=== PATIENT | male | born 1950 | race Caucasian/White ===

== ENCOUNTER 2017-02-18 08:00 | Outpatient (RCR) | payer MEDICARE, OTHER, SELFPAY | END 2017-03-07 | LOC: PT.CARL 08:00 | PROVIDERS: Referring Provider Orthopaedic Surgery; Visit Provider Orthopaedic Surgery | DX: Z47.31 Aftercare following explantation of shoulder joint prosthesis (principal) | CPT/HCPCS: G8984; G8985; G8986; 97010; 97014; 97033; 97110; 97140; 97161; G0283 ==

== ENCOUNTER 2018-06-25 10:00 | Outpatient (RCR) | payer MEDICARE, OTHER, SELFPAY | END 2018-06-25 10:05 | disposition home or self-care (01) | LOC: PT 10:00 | PROVIDERS: Visit Provider Orthopaedic Surgery | DX: Z96.651 Presence of right artificial knee joint (principal) | CPT/HCPCS: 97012; 97014; 97016; 97110; 97140; 97163; G0283 ==

== ENCOUNTER 2019-06-21 09:00 | Outpatient (RCR) | payer MEDICARE, OTHER, SELFPAY | END 2019-07-05 15:52 | disposition home or self-care (01) | LOC: PT.CARL 09:00 | PROVIDERS: Visit Provider Orthopaedic Surgery | DX: M25.561 Pain in right knee (principal); Z96.651 Presence of right artificial knee joint | CPT/HCPCS: 97014; 97033; 97110; 97116; 97140; 97163; G0283 ==

== ENCOUNTER 2022-04-08 14:00 | Outpatient (RCR) | payer MEDICARE, OTHER, SELFPAY | END 2022-04-11 06:52 | disposition home or self-care (01) | LOC: PT 14:00 | PROVIDERS: Visit Provider Orthopaedic Surgery | DX: S46.012S Strain of muscle(s) and tendon(s) of the rotator cuff of left shoulder, sequela (principal); M19.012 Primary osteoarthritis, left shoulder; Z96.612 Presence of left artificial shoulder joint | CPT/HCPCS: 97010; 97014; 97110; 97140; 97163; G0283 ==

== ENCOUNTER → 2022-08-15 23:00 | Outpatient (CLI) | payer MEDICARE, OTHER, SELFPAY ==
[2022-08-15 16:03] LABS: Basophils % 0.5 % (0.1-2.0); Eosinophils # 0.6 K/mm3 (0.0-0.4); Eosinophils % 6.7 % (0.1-12.0); Hematocrit 46.7 % (42.0-52.0); Hemoglobin 15.2 g/dL (14.1-18.0); Lymphocytes # 2.4 K/mm3 (0.7-4.5); Lymphocytes % 27.9 % (10-50); Mean Corpuscular HGB Conc 32.6 g/dL (31.8-35.4); Mean Corpuscular Hemoglobin 29.6 pg (27.0-31.2); Mean Platelet Volume 8.8 fl (7.4-10.4); Monocytes # 0.6 K/mm3 (0.1-1.0); Monocytes % 7.2 % (1.7-9.3); Neutrophils # 4.9 K/mm3 (1.8-7.8); Neutrophils % 57.6 % (37.0-80.0); Platelet Count 249 K/mm3 (142-424); Red Blood Count 5.13 M/mm3 (4.60-6.20); Red Cell Distribution Width 12.8 % (11.5-17.5); White Blood Count 8.5 K/mm3 (4.8-10.8)
[2022-08-15 16:04] LABS: Chloride 104 mmol/L (98-107); Potassium 4.3 mmoL/L (3.5-5.1); Sodium 142 mmol/L (136-145)
[2022-08-15 16:06] LABS: Blood Urea Nitrogen 19 mg/dl (9-20); Estimated Glomerular Filt Rate 83 ml/min (>60); GFR (African American) 100 ML/MIN (>60)
[2022-08-15 16:07] LABS: Alanine Aminotransferase 39 U/L (12-78); Albumin/Globulin Ratio 1.3 (1.1-1.8); Alkaline Phosphatase 105 U/L (38-126); Anion Gap 13.3 mEq/L (5-15); Aspartate Amino Transferase 40 U/L (17-59); Bilirubin,Total 2.2 mg/dl (0.2-1.3); Calcium 9.2 mg/dl (8.4-10.2); Carbon Dioxide 29 mmol/L (22.0-30.0); Cholesterol 144 mg/dl (140-200); Globulin 3.1 g/dL (1.3-3.2); Glucose 137 mg/dl (74-100); Total Protein,Serum 7.1 g/dl (6.3-8.2); Triglycerides 146 mg/dl (30-150); VLDL Cholesterol 29 mg/dL (0-40)
[2022-08-15 16:08] LABS: Chol/HDL Ratio 4.4 (1-3.5); HDL Cholesterol 33 mg/dl (40-60)
[2022-08-15 16:19] LABS: Direct LDL Cholesterol 78.57 mg/dL (100-129)
[2022-08-16 10:09] LABS: Hemoglobin A1C 5.4 % (4.0-6.0)
== END ==
PROVIDERS: PCP Nurse Practitioner Family; Visit Provider Nurse Practitioner Family
DX: I50.30 Unspecified diastolic (congestive) heart failure (principal); I44.0 Atrioventricular block, first degree; R73.9 Hyperglycemia, unspecified; I11.0 Hypertensive heart disease with heart failure
CPT/HCPCS: 80053; 80061; 83036; 85025

== ENCOUNTER 2022-10-05 10:28 | Emergency (ER) | payer MEDICARE, OTHER, SELFPAY ==
[2022-10-05 10:29] VITALS: BP 164/71; PULSE 53; RESP 18; TEMP 36.4; O2SAT 99; BMI 34.7
[2022-10-05 11:01] VITALS: BP 136/57; PULSE 56; RESP 18; O2SAT 98
--- NOTE | 2022-10-05 11:06 | HMH.EDGENADL ---
Discharge Plan Disposition Patient Disposition: Home, Self-Care Prescriptions Prescriptions: New hydrocodone-acetaminophen 5-325 mg tablet 1 tab PO Q6H PRN (Reason: pain) 3 Days Qty: 12 0RF tamsulosin [Flomax] 0.4 mg capsule 0.4 mg PO DAILY 7 Days Qty: 7 0RF ondansetron 4 mg tablet,disintegrating 4 mg PO Q6H PRN (Reason: nausea and vomiting) 5 Days Qty: 20 0RF No Action atorvastatin 80 mg tablet 80 mg PO DAILY Patient Comments: TAKE 1 TABLET BY MOUTH EVERY EVENING pantoprazole 40 mg tablet,delayed release (DR/EC) 40 mg PO DAILY losartan 50 mg tablet 50 mg PO DAILY Patient Comments: TAKE 1 TABLET BY MOUTH EVERY DAY furosemide 20 mg tablet 20 mg PO DAILY Patient Comments: TAKE 1 TABLET BY MOUTH DAILY clopidogrel 75 mg tablet 75 mg PO DAILY nitroglycerin 0.4 mg tablet, sublingual 0.4 mg sublingual Q5-15M PRN Rx Instructions: do not exceed 3 doses per episode gabapentin 600 mg tablet 600 mg PO TID Qty: 90 2RF carvedilol [Coreg] 12.5 mg tablet 12.5 mg PO BID 90 Days Qty: 180 1RF Referrals Follow up/Referrals: Travis Castellano MD [Primary Care Provider] - See instructions Activity Restrictions/Add. Instructions Additional Instructions/Restrictions: Follow-up with urologist if you are not improving and return to the emergency department with any high fevers or intractable pain or nausea vomiting as well. Clinical Impressions Clinical Impression: Kidney stone on left side, Hydronephrosis concurrent with and due to calculi of kidney and ureter Instructions Patient Instructions: DI for Acute Abdominal Pain Discharge ED Provider: Tomas Parker General Adult HPI General Chief complaint: Abdominal Pain Stated complaint: stomach pain,diarrhea,nausea Time Seen by Provider: 10/05/22 10:37 History of Present Illness HPI narrative: Patient is a 72-year-old male with a history of appendectomy and cholecystectomy and kidney stones requiring stents presenting today with abdominal pain and feeling like my abdomen is going to explode. He states that this began early this morning relatively suddenly he is having hard time articulating where it is and points to both sides of his lower abdomen and does have some pain radiating through to his back. Denies having any urinary symptoms has gone to the bathroom a few times with some very loose but small volume stools. No fevers or chills no hematuria that he is aware of. No frequency urgency or dysuria. States this feels different than kidney stones has had in the past. No significant tenderness when he touches his abdomen. Related Data Home Medications Medication Instructions Recorded Confirmed atorvastatin 80 mg tablet 80 mg PO DAILY HLD 08/15/22 08/15/22 clopidogrel 75 mg tablet 75 mg PO DAILY anticoagulation 08/15/22 08/15/22 furosemide 20 mg tablet 20 mg PO DAILY edema 08/15/22 08/15/22 losartan 50 mg tablet 50 mg PO DAILY HTN 08/15/22 08/15/22 nitroglycerin 0.4 mg sublingual 0.4 mg sublingual Q5-15M PRN 08/15/22 08/15/22 tablet pantoprazole 40 mg tablet,delayed 40 mg PO DAILY acid reflux 08/15/22 08/15/22 release Previous Rx's Medication Instructions Recorded gabapentin 600 mg tablet 600 mg PO TID neuropathy #90 tabs 08/15/22 carvedilol 12.5 mg tablet (Coreg) 12.5 mg PO BID 90 days #180 tabs 09/09/22 hydrocodone 5 mg-acetaminophen 325 1 tab PO Q6H PRN pain 3 days #12 10/05/22 mg tablet tabs ondansetron 4 mg disintegrating 4 mg PO Q6H PRN nausea and 10/05/22 tablet vomiting 5 days #20 tabs tamsulosin 0.4 mg capsule (Flomax) 0.4 mg PO DAILY 7 days #7 caps 10/05/22 Allergies Allergy/AdvReac Type Severity Reaction Status Date / Time No Known Allergies Allergy Verified 08/15/22 09:47 [facility] Disclaimer: The information contained in this section may have been updated after the patient was seen, as this information can be updated by other users. [facility]
--- NOTE | 2022-10-05 11:08 | CT_ITS ---
PROCEDURE INFORMATION: Exam: CT Abdomen And Pelvis With Contrast Exam date and time: 10/05/2022 12:44 PM Age: 72 years old Clinical indication: Abdominal pain; Other: Diffuse; Additional info: Diffuse abd pain out of proportion to exam TECHNIQUE: Imaging protocol: Computed tomography of the abdomen and pelvis with contrast. Radiation optimization: All CT scans at this facility use at least one of these dose optimization techniques: automated exposure control; mA and/or kV adjustment per patient size (includes targeted exams where dose is matched to clinical indication); or iterative reconstruction. Contrast material: ISOVUE; Contrast volume: 100 ml; Contrast route: INTRAVENOUS (IV); REPORTING DATA: Count of CT and Cardiac NM exams in prior 12 months: This patient has received 0 known CTs and 0 known cardiac nuclear medicine studies in the 12 months prior to the current study. COMPARISON: No relevant prior studies available. FINDINGS: Lungs: Minor hypoventilatory changes at the lung bases otherwise lung bases are clear. Liver: Liver is unremarkable. No mass or enlargement detected. Gallbladder and bile ducts: Gallbladder has been removed. Bile ducts are not appreciably dilated. Pancreas: Unremarkable. Main pancreatic duct is not significantly dilated. Spleen: Spleen is unremarkable. No enlargement or mass detected. Adrenal glands: Adrenal glands are not enlarged. No masses detected. Kidneys and ureters: There are multiple nonobstructing renal stones bilaterally measuring up to 8 mm. There is mild left hydroureteronephrosis secondary to 4 mm calculus projecting along the distal aspect of the left ureterovesical junction. It is unclear if this is recently passed into the bladder. There is mild perinephric and periureteral fluid likely related to the acute obstruction. 3 cm benign-appearing right renal cortical cyst. Stomach and bowel: Unremarkable. No obstruction. No mucosal thickening. Appendix: No evidence of acute appendicitis. Intraperitoneal space: Unremarkable. No free air. No significant fluid collection. Vasculature: Scattered atherosclerotic changes of the abdominal aorta and iliac vessels. No aortic aneurysm. Lymph nodes: Unremarkable. No enlarged lymph nodes. Urinary bladder: Urinary bladder is otherwise unremarkable. Reproductive: Prostate gland is mildly enlarged. Bones/joints: Postop changes from prior lumbar fusion L4-L5 with maintained alignment. No acute bony abnormalities. Soft tissues: Soft tissues are unremarkable. IMPRESSION: 1. Mild left hydroureteronephrosis secondary to a 4 mm calculus at the left ureterovesical junction, possibly recently passed with evidence of recent obstruction of the left tract 2. Multiple nonobstructing renal stones bilaterally. 3. Additional chronic findings as above. COMMENTS: Consistent with the [employer]'s Incidental Findings Committee white paper (J Am Conrad Radiol 2018): Any incidental renal lesion less than 1 cm or classified as too small to characterize, or any incidental cystic renal lesion characterized as simple-appearing, is likely benign. No follow-up imaging is recommended for these lesions per consensus recommendations based on imaging criteria.
[2022-10-05 11:15] LABS: Basophils % 0.4 % (0.1-2.0); Eosinophils # 0.3 K/mm3 (0.0-0.4); Eosinophils % 3.2 % (0.1-12.0); Hematocrit 45.9 % (42.0-52.0); Lymphocytes # 1.5 K/mm3 (0.7-4.5); Lymphocytes % 16.1 % (10-50); Mean Corpuscular HGB Conc 32.7 g/dL (31.8-35.4); Mean Corpuscular Hemoglobin 29.7 pg (27.0-31.2); Mean Platelet Volume 9.3 fl (7.4-10.4); Monocytes # 0.7 K/mm3 (0.1-1.0); Neutrophils # 6.6 K/mm3 (1.8-7.8); Neutrophils % 72.4 % (37.0-80.0); Platelet Count 250 K/mm3 (142-424); Red Blood Count 5.04 M/mm3 (4.60-6.20); Red Cell Distribution Width 12.7 % (11.5-17.5); White Blood Count 9.1 K/mm3 (4.8-10.8)
[2022-10-05 11:19] LABS: Chloride 106 mmol/L (98-107); Potassium 4.4 mmoL/L (3.5-5.1); Sodium 141 mmol/L (136-145)
--- NOTE | 2022-10-05 11:20 | PC.NURSE ---
Rounded on patient; provided patient warm blanket and pillow. Call boyer within reach nothing needed at this time
[2022-10-05 11:21] LABS: Alanine Aminotransferase 34 U/L (12-78); Aspartate Amino Transferase 33 U/L (17-59); Blood Urea Nitrogen 17 mg/dl (9-20); Estimated Glomerular Filt Rate 73 ml/min (>60); GFR (African American) 89 ML/MIN (>60)
[2022-10-05 11:22] LABS: Albumin Level 4.1 g/dl (3.5-5.0); Albumin/Globulin Ratio 1.3 (1.1-1.8); Alkaline Phosphatase 107 U/L (38-126); Anion Gap 9.4 mEq/L (5-15); Bilirubin,Total 1.2 mg/dl (0.2-1.3); Calcium 9.4 mg/dl (8.4-10.2); Carbon Dioxide 30 mmol/L (22.0-30.0); Globulin 3.1 g/dL (1.3-3.2); Glucose 143 mg/dl (74-100); Lipase 98 U/L (23-300); Total Protein,Serum 7.2 g/dl (6.3-8.2)
[2022-10-05 11:31] VITALS: BP 136/62; PULSE 54; RESP 18; O2SAT 92
[2022-10-05 11:33] LABS: Lactic Acid 1.4 mmol/L (0.7-2.1)
--- NOTE | 2022-10-05 11:53 | PC.NURSE ---
Reassessed patient's pain; patient resting in bed states medication did help. Call light within reach
[2022-10-05 12:00] VITALS: BP 127/57; PULSE 56; RESP 18; O2SAT 94
--- NOTE | 2022-10-05 12:02 | PC.NURSE ---
patient resting quietly, visitor at bedside, call light within reach
--- NOTE | 2022-10-05 12:18 | PC.NURSE ---
ROUNDED ON PT, REPORTS FEELING MUCH BETTER
[2022-10-05 12:31] VITALS: BP 139/65; PULSE 59; RESP 16; O2SAT 96
--- NOTE | 2022-10-05 12:39 | PC.NURSE ---
patient to CT
[2022-10-05 12:40] LABS: Appearance,Urine CLEAR (Clear); Bilirubin,Urine Negative (Negative); Blood, Urine 1+ (Negative); Color,Urine YELLOW (Yellow); Glucose,Urine (UA) Negative (Negative); Ketones,Urine Negative (Negative); Leukocyte Esterase,Urine Negative (Negative); Microscopic, Urine URINE MICROSCOPIC (MICROSCOPIC); Nitrate,Urine Negative (Negative); Protein,Urine Negative (Negative); Specific Gravity, Urine >= 1.030 (1.005-1.030); Urobilinogen,Urine 0.2 EU/dl (0.2)
--- NOTE | 2022-10-05 12:50 | PC.NURSE ---
PT RETURNED FROM CT
[2022-10-05 12:51] LABS: Bacteria,Urine Trace /lpf; Squamous Epithelial Cell,Urine Occasional #/hpf (0-5)
--- NOTE | 2022-10-05 13:39 | PC.NURSE ---
DR HODGE AT BEDSIDE TO REEVALUATE PT
[2022-10-05 14:10] VITALS: BP 134/66; PULSE 61; RESP 16; TEMP 36.4; O2SAT 97
== END 2022-10-05 14:12 | disposition home or self-care (01) ==
PROVIDERS: Emergency Provider Student in an Organized Health Care Education/Training Program; PCP Family Medicine
DX: N20.2 Calculus of kidney with calculus of ureter (principal); N13.30 Unspecified hydronephrosis
CPT/HCPCS: 74174; 80053; 81001; 83605; 83690; 85025; 96361; 96374; 96375; 99285; J2405; Q9967

== ENCOUNTER → 2022-12-02 11:00 | Outpatient (CLI) | payer MEDICARE, OTHER, SELFPAY ==
--- NOTE | 2022-12-02 11:12 | XR_ITS ---
FINAL REPORT CLINICAL HISTORY: neck pain with numbness and tingling BUE COMPARISON: None FINDINGS: CERVICAL SPINE WITH FLEXION AND EXTENSION: There is multilevel degenerative change identified, predominantly at the C5-6 level with disc space narrowing and osteophytes present. No acute bony abnormality is identified. There is no evidence of change in alignment with flexion or extension. No prevertebral soft tissue swelling is present. 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 No change in alignment with flexion and extension. Reviewed, Interpreted and Dictated by Barbara Leigh MD Transcribed by Jennifer Moraes Authenticated and . [facility]
[2022-12-02 13:43] LABS: Thyroid Stimulating Hormone 4.46 uIU/mL (0.465-4.68)
[2022-12-02 14:18] LABS: Vitamin B12 227 pg/mL (239-931)
== END ==
PROVIDERS: Nurse Practitioner Family; PCP Family Medicine; Visit Provider Specialist
DX: R20.0 Anesthesia of skin (principal); R20.2 Paresthesia of skin; M79.601 Pain in right arm; M79.602 Pain in left arm; G89.29 Other chronic pain; M54.2 Cervicalgia
CPT/HCPCS: 36415; 72052; 82607; 82746; 84443

== ENCOUNTER → 2023-02-13 13:43 | Outpatient (CLI) | payer MEDICARE, OTHER, SELFPAY ==
--- NOTE | 2023-02-13 14:03 | XR_ITS ---
FINAL REPORT CLINICAL HISTORY: right wrist pain COMPARISON: None FINDINGS: RIGHT WRIST Three views demonstrate no acute fracture or dislocation. The visualized joint spaces are normally aligned. There is moderate hypertrophic change involving the radial ulnar joint. The soft tissues are unremarkable. IMPRESSION: No acute bony abnormality. Reviewed, Interpreted and Dictated by Pardeep Salazar MD Transcribed by Jennifer Moraes Authenticated and [facility]
--- NOTE | 2023-02-13 14:03 | XR_ITS ---
FINAL REPORT CLINICAL HISTORY: left wrist pain COMPARISON: None FINDINGS: LEFT WRIST Three views demonstrate no acute fracture or dislocation. The visualized joint spaces are normally aligned. The soft tissues are unremarkable. There is a well-corticated density adjacent to the radial styloid that may be the result of prior trauma. IMPRESSION: No acute bony abnormality. Reviewed, Interpreted and Dictated by Pardeep Salazar MD Transcribed by Jennifer Moraes Authenticated and [facility]
== END ==
PROVIDERS: PCP Family Medicine; Visit Provider Orthopaedic Surgery
DX: M25.531 Pain in right wrist (principal); M25.532 Pain in left wrist
CPT/HCPCS: 73110

== ENCOUNTER 2024-06-22 09:55 | Outpatient (CLI) | payer MEDICARE, SELFPAY ==
[2024-06-22 16:38] LABS: Basophils # 0.1 K/mm3 (0-0.2); Basophils % 0.9 % (0.1-2.0); Eosinophils # 0.4 K/mm3 (0.0-0.4); Eosinophils % 6.2 % (0.1-12.0); Hemoglobin 14.6 g/dL (14.1-18.0); Mean Corpuscular HGB Conc 33.2 g/dL (31.8-35.4); Mean Corpuscular Hemoglobin 30.4 pg (27.0-31.2); Mean Corpuscular Volume 91.5 fl (80-94); Mean Platelet Volume 11.3 fl (7.4-10.4); Monocytes # 0.7 K/mm3 (0.1-1.0); Monocytes % 12.5 % (1.7-9.3); Neutrophils # 2.7 K/mm3 (1.8-7.8); Neutrophils % 46.1 % (37.0-80.0); Nucleated Red Blood Cells # 0 10^3/uL; Nucleated Red Blood Cells % 0 %; Platelet Count 260 K/mm3 (142-424); Red Blood Count 4.81 M/mm3 (4.60-6.20); Red Cell Distribution Width 12.6 % (11.5-17.5); White Blood Count 5.9 K/mm3 (4.8-10.8)
[2024-06-22 17:05] LABS: Alanine Aminotransferase 35 U/L (12-78); Albumin Level 4.2 g/dl (3.5-5.0); Albumin/Globulin Ratio 1.4 (1.1-1.8); Alkaline Phosphatase 89 U/L (38-126); Anion Gap 16.2 mEq/L (5-15); Aspartate Amino Transferase 33 U/L (17-59); Bilirubin,Total 1.7 mg/dl (0.2-1.3); Blood Urea Nitrogen 19 mg/dl (9-20); Calcium 8.9 mg/dl (8.4-10.2); Carbon Dioxide 26 mmol/L (22.0-30.0); Chloride 103 mmol/L (98-107); Chol/HDL Ratio 3.9 (1-3.5); Cholesterol 141 mg/dl (140-200); Estimated Glomerular Filt Rate 94 ml/min (>60); GFR (African American) 114 ML/MIN (>60); Globulin 2.9 g/dL (1.3-3.2); Glucose 95 mg/dl (74-100); HDL Cholesterol 36 mg/dl (40-60); Potassium 4.2 mmoL/L (3.5-5.1); Sodium 141 mmol/L (136-145); Total Protein,Serum 7.1 g/dl (6.3-8.2); Triglycerides 96 mg/dl (30-150); VLDL Cholesterol 19 mg/dL (0-40)
[2024-06-22 17:15] LABS: Direct LDL Cholesterol 75.44 mg/dL (100-129)
[2024-06-22 17:35] LABS: Prostate Specific Ag Screen 1.1 ng/ml (0.0-4.0)
[2024-06-22 17:45] LABS: HIV Combo NEGATIVE (Negative)
[2024-06-22 17:55] LABS: Hepatitis C Ab Qual. W/ RFX NEGATIVE (Negative)
[2024-06-22 19:23] LABS: Vitamin B12 223 pg/mL (239-931)
--- OUTSIDE RECORDS SUMMARY | 2024-06-23 10:13 | XMS_ITS | Data Portability ---
Author Organization [facility] Address [address] [place] [address] Care Team Providers Care Quality Measurement Specialist Name Role Phone KOTA LAINEZ Primary Care Provider Assessment No assessment recorded. Plan of Treatment Reminders Order Date Submit Date Provider Last Modified By Organization Details Last Modified Time Details Appointments None recorded. Lab PSA, total, serum or plasma 2021 [facility], [address], [address], [place], [address], 08:19:40 CBC w/ auto diff 2021 [facility], [address], [address], [place], [address], 08:19:37 CMP, serum or plasma 2021 [facility], [address], [address], [place], [address], 08:19:37 TSH, ultra-sens itive, serum 2021 [facility], [address], [address], [place], [address], 08:19:39 lipid panel, serum 2021 [facility], [address], [place], [address], 08:19:38 Referral None recorded. Procedures None recorded. Surgeries None recorded. Imaging None recorded. Medication Orders losartan 50 mg tablet 2021 [id number], [address], [id number], 11:43:33 carvedilol 12.5 mg tablet 2021 [facility][id number], [address] [place], [id number], 11:43:41 pantoprazo le 40 mg tablet,del ayed release 2021 [facility] #[id number], [address], [id number], 11:43:42 donepezil 5 mg tablet 2021 [facility] #24906, [address], [id number], 11:43:43 atorvastat in 80 mg tablet 2021 [facility] #[id number], [address], [phone], 11:43:41 gabapentin 600 mg tablet 2021 [facility] #17344, [address], [id number], 11:43:47 Patient TargetsNo targets recorded. Patient InstructionsNo instructions recorded. Reason for Referral None Reported. Results Created Date Observation Date Name Description Value Unit Range Abnormal Flag Note LastModifiedBy Organization Detail LastModifiedTime 02/07/20 22 02/07/2022 CBC WITH DIFFE RENTI AL/PL ATELE T WBC 6.5 x10e3 /uL 3.4-10 .8 Not Available [facility] ([facility]) [address] [facility], [place], [address], 02/07/2022 08:19:36 02/07/20 22 02/07/2022 CBC WITH DIFFE RENTI AL/PL ATELE T RBC 5.00 x10e6 /uL 4.14-5 .80 Not Available [facility] ([facility]) [address] [facility], [place], [address], 02/07/2022 08:19:36 02/07/20 22 02/07/2022 CBC WITH DIFFE RENTI AL/PL ATELE T hemoglobin 14.6 g/dL 13.0-1 7.7 Not Available [facility] ([facility]) [address] [facility], [place], [address], 02/07/2022 08:19:36 02/07/20 22 02/07/2022 CBC WITH DIFFE RENTI AL/PL ATELE T hematocrit 43.3 % 37.5-5 1.0 Not Available [facility] ([facility]) [address] [facility], [place], [address], 02/07/2022 08:19:36 02/07/20 22 02/07/2022 CBC WITH DIFFE RENTI AL/PL ATELE T MCV 87 fL 79-97 Not Available [facility] ([facility]) [address] [place], [address], 02/07/2022 08:19:36 02/07/20 22 02/07/2022 CBC WITH DIFFE RENTI AL/PL ATELE T MCH 29.2 pg 26.6-3 3.0 Not Available [facility] ([facility]) [address] [place], [address], 02/07/2022 08:19:36 02/07/20 22 02/07/2022 CBC WITH DIFFE RENTI AL/PL ATELE T MCHC 33.7 g/dL 31.5-3 5.7 Not Available [facility] ([facility]) [address] [facility], [place], [address], 02/07/2022 08:19:36 02/07/20 22 02/07/2022 CBC WITH DIFFE RENTI AL/PL ATELE T RDW 13.9 % 11.6-1 5.4 Not Available [facility] ([facility]) [address] [facility], [place], [address], 02/07/2022 08:19:36 02/07/20 22 02/07/2022 CBC WITH DIFFE RENTI AL/PL ATELE T platelets 249 x10e3 /uL 150-45 0 Not Available [facility] ([facility]) [address] [facility], [place], [address], 02/07/2022 08:19:36 02/07/20 22 02/07/2022 CBC WITH DIFFE RENTI AL/PL ATELE T neutrophils 55 % not estab. Not Available [facility] ([facility]) [address] [facility], [place], [address], 02/07/2022 08:19:36 02/07/20 22 02/07/2022 CBC WITH DIFFE RENTI AL/PL ATELE T lymphs 29 % not estab. Not Available [facility] ([facility]) [address] [facility], [place], [address], 02/07/2022 08:19:36 02/07/20 22 02/07/2022 CBC WITH DIFFE RENTI AL/PL ATELE T monocytes 10 % not estab. Not Available [facility] ([facility]) [address] [facility], [place], [address], 02/07/2022 08:19:36 02/07/20 22 02/07/2022 CBC WITH DIFFE RENTI AL/PL ATELE T eos 5 % not estab. Not Available [facility] ([facility]) [address] [facility], [place], [address], 02/07/2022 08:19:36 02/07/20 22 02/07/2022 CBC WITH DIFFE RENTI AL/PL ATELE T basos 1 % not estab. 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 0 Not Available [facility] ([facility]) [address] [place], [address], 02/07/2022 08:19:36 02/07/20 22 02/07/2022 CBC WITH DIFFE RENTI AL/PL ATELE T lymphs (absolute) 1.9 x10e3 /uL 0.7-3. 1 Not Available [facility] ([facility]) [address] [place], [address], 02/07/2022 08:19:36 02/07/20 22 02/07/2022 CBC WITH DIFFE RENTI AL/PL ATELE T monocytes(ab solute) 0.6 x10e3 /uL 0.1-0. 9 Not Available [facility] ([facility]) [address] [place], [address], 02/07/2022 08:19:36 02/07/20 22 02/07/2022 CBC WITH DIFFE RENTI AL/PL ATELE T eos (absolute) 0.3 x10e3 /uL 0.0-0. 4 Not Available [facility] ([facility]) [address] [place], [address], 02/07/2022 08:19:36 02/07/20 22 02/07/2022 CBC WITH DIFFE RENTI AL/PL ATELE T baso (absolute) 0.0 x10e3 /uL 0.0-0. 2 Not Available [facility] ([facility]) [address] [facility], [place], [address], 02/07/2022 08:19:36 02/07/20 22 02/07/2022 CBC WITH DIFFE RENTI AL/PL ATELE T immature granulocytes 0 % not estab. Not Available [facility] ([facility]) [address] [facility], [place], [address], 02/07/2022 08:19:36 02/07/20 22 02/07/2022 CBC WITH DIFFE RENTI AL/PL ATELE T immature grans (abs) 0.0 x10e3 /uL 0.0-0. 1 Not Available [facility] ([facility]) [address] [facility], [place], [address], 02/07/2022 08:19:36 02/07/20 22 02/07/2022 CBC WITH DIFFE RENTI AL/PL ATELE T NRBC CHILD CARE WORKER Not Available [facility] ([facility]) [address] [facility], [place], [address], 02/07/2022 08:19:36 02/07/20 22 02/07/2022 CBC WITH DIFFE RENTI AL/PL ATELE T hematology comments: CHILD CARE WORKER Not Available [facility] ([facility]) [address] [facility], [place], [address], 02/07/2022 08:19:36 02/07/20 22 02/07/2022 COMP. METAB OLIC PANEL (14) glucose 149 mg/dL 70-99 above high normal Not Available [facility] ([facility]) [address] [facility], [place], [address], 02/07/2022 08:19:37 02/07/20 22 02/07/2022 COMP. METAB OLIC PANEL (14) BUN 18 mg/dL 8-27 Not Available [facility] ([facility]) [address] [facility] [place], [address], 02/07/2022 08:19:37 02/07/20 22 02/07/2022 COMP. METAB OLIC PANEL (14) creatinine 0.93 mg/dL 0.76-1 .27 Not Available [facility] ([facility]) [address] [facility], [place], [address], 02/07/2022 08:19:37 02/07/20 22 02/07/2022 COMP. METAB OLIC PANEL (14) eGFR 88 mL/mi n/1.7 3 >59 Not Available [facility] ([facility]) [address] [facility], [place], [address], 02/07/2022 08:19:37 02/07/20 22 02/07/2022 COMP. METAB OLIC PANEL (14) BUN/creatini ne ratio 19 10-24 Not Available [facility] ([facility]) [address] [facility], [place], [address], 02/07/2022 08:19:37 02/07/20 22 02/07/2022 COMP. METAB OLIC PANEL (14) sodium 143 mmol/ L 134-14 4 Not Available [facility] ([facility]) [address] [place], [address], 02/07/2022 08:19:37 02/07/20 22 02/07/2022 COMP. METAB OLIC PANEL (14) potassium 4.0 mmol/ L 3.5-5. 2 Not Available [facility] ([facility]) [address] [place], [address], 02/07/2022 08:19:37 02/07/20 22 02/07/2022 COMP. METAB OLIC PANEL (14) chloride 103 mmol/ L 96-106 Not Available [facility] ([facility]) [address], [place], [address], 02/07/2022 08:19:37 02/07/20 22 02/07/2022 COMP. METAB OLIC PANEL (14) carbon dioxide, total 22 mmol/ L 20-29 Not Available [facility] ([facility]) [address] [place], [address], 02/07/2022 08:19:37 02/07/20 22 02/07/2022 COMP. METAB OLIC PANEL (14) calcium 9.3 mg/dL 8.6-10 .2 Not Available [facility] ([facility]) [address] [place], [address], 02/07/2022 08:19:37 02/07/20 22 02/07/2022 COMP. METAB OLIC PANEL (14) protein, total 6.8 g/dL 6.0-8. 5 Not Available [facility] ([facility]) [address] [place], [address], 02/07/2022 08:19:37 02/07/20 22 02/07/2022 COMP. METAB OLIC PANEL (14) albumin 4.4 g/dL 3.7-4. 7 Not Available [facility] ([facility]) [address] [place], [address], 02/07/2022 08:19:37 02/07/20 22 02/07/2022 COMP. METAB OLIC PANEL (14) globulin, total 2.4 g/dL 1.5-4. 5 Not Available [facility] ([facility]) [address] [place], [address], 02/07/2022 08:19:37 02/07/20 22 02/07/2022 COMP. METAB OLIC PANEL (14) A/G ratio 1.8 1.2-2. 2 Not Available [facility] ([facility]) [address] [facility] [place], [address], 02/07/2022 08:19:37 02/07/20 22 02/07/2022 COMP. METAB OLIC PANEL (14) bilirubin, total 1.6 mg/dL 0.0-1. 2 above high normal Not Available [facility] ([facility]) [address] [facility] [place], [address], 02/07/2022 08:19:37 02/07/20 22 02/07/2022 COMP. METAB OLIC PANEL (14) alkaline phosphatase 94 IU/L 44-121 Not Available [facility] ([facility]) [address] [facility] [place], [address], 02/07/2022 08:19:37 02/07/20 22 02/07/2022 COMP. METAB OLIC PANEL (14) AST (SGOT) 38 IU/L 0-40 Not Available [facility] ([facility]) [address] [facility] [place], [address], 02/07/2022 08:19:37 02/07/20 22 02/07/2022 COMP. METAB OLIC PANEL (14) ALT (SGPT) 51 IU/L 0-44 above high normal Not Available [facility] ([facility]) [address] [facility], [place], [address], 02/07/2022 08:19:37 02/07/20 22 02/07/2022 LIPID PANEL WITH LDL/H DL RATIO cholesterol, total 149 mg/dL 100-19 9 Not Available [facility] ([facility]) [address] [facility] [place], [address], 02/07/2022 08:19:38 02/07/20 22 02/07/2022 LIPID PANEL WITH LDL/H DL RATIO triglyceride s 115 mg/dL 0-149 Not Available [facility] ([facility]) [address] [place], [address], 02/07/2022 08:19:38 02/07/20 22 02/07/2022 LIPID PANEL WITH LDL/H DL RATIO HDL cholesterol 43 mg/dL >39 Not Available [facility] ([facility]) [address] [place], [address], 02/07/2022 08:19:38 02/07/20 22 02/07/2022 LIPID PANEL WITH LDL/H DL RATIO VLDL cholesterol karma 21 mg/dL 5-40 Not Available [facility] ([facility]) [address] [facility], [place], [address], 02/07/2022 08:19:38 02/07/20 22 02/07/2022 LIPID PANEL WITH LDL/H DL RATIO LDL chol calc ([facility]) 85 mg/dL 0-99 Not Available [facility] ([facility]) [address] [place], [address], 02/07/2022 08:19:38 02/07/20 22 02/07/2022 LIPID PANEL WITH LDL/H DL RATIO comment: CHILD CARE WORKER Not Available [facility] ([facility]) [address] [place], [address], 02/07/2022 08:19:38 02/07/20 22 02/07/2022 LIPID PANEL WITH LDL/H DL RATIO LDL/HDL ratio 2.0 ratio 0.0-3. 6 LDL/H DL Ratio Men Women 1/2 Avg.R isk 1.0 1.5 Avg.R isk 3.6 3.2 2X Avg.R isk 6.2 5.0 3X Avg.R isk 8.0 6.1 Not Available [facility] ([facility]) [address] [place], [address], 02/07/2022 08:19:38 02/07/20 22 02/07/2022 TSH TSH 4.140 uIU/m L 0.450- 4.500 Not Available [facility] ([facility]) [address] [place], [address], 02/07/2022 08:19:39 02/07/20 22 02/07/2022 PROST ATE-S PECIF IC AG prostate specific Ag 0.7 NG/mL 0.0-4. 0 Irving ECLIA metho dolog y. Accor ding to the Ameri can [employer] g[employer] iatio n, Serum PSA shoul d decre ase and remai n at undet ectab le level s after radic al prost atect octavio. The AUA defin es bioch emica l recur rence as an initi al PSA value 0.2 ng/mL or great er follo wed by a subse quent confi rmato ry PSA value 0.2 ng/mL or great er. Value s obtai darren with diffe rent assay metho ds or kits canno t be used inter hermosillo eably . Resul ts canno t be inter prete d as absol kaw evide nce of the prese nce or absen ce of felisa cano se. Not Available [facility] ([facility]) [address] [facility], [place], [address], 02/07/2022 08:19:40 02/07/20 22 02/07/2022 HEMOG LOBIN A1C hemoglobin A1C 5.9 % 4.8-5. 6 above high normal Predi abete s: 5.7 - 6.4 Diabe carlyle: >6.4 Glyce nazia contr ol for adult s with diabe carlyle: <7.0 Not Available [facility] ([facility]) [address] [facility], [place], [address], 02/08/2022 08:20:43 02/07/20 22 02/08/2022 DAVID EN AUTHO RIZAT ION written authorizatio n Commen t David en Autho rizat ion Recei emily. Autho rizat ion recei emily from GIOVANNA LOPEZ ON FILE 02-08 Logge d by Richard nevarez Not Available [facility] ([facility]) [address] [facility], [place], [address], 02/08/2022 08:20:43 08/20/1905/17/2020 NM, bone scan, whole body No observ ation record ed. Not Available 2022 16:50:01 08/20/19 23 06/17/2012 colon oscop y proce dure (PROC ) No observ ation record ed. [email or web address] Not Available 2022 16:50:27 Result Notes None recorded. Problems Name Problem SNOMED Code Status Onset Date Resolution Date Notes Provider Name and Address Organization Details Recorded Time Essential hypertensio n 95595950 Active 2021 [employer] [place], [place] - [facility] [place] [facility] [place] 2 11:15:01 Hyperlipide poncho 20290362 Active 2021 [employer] [place] [facility] [place] [facility] [place] 2 11:15:07 Cardiomyopa thy 08055622 Active 2021 [employer] [place] [facility] [place] [facility] [place] 2 11:15:48 Left bundle branch block 71326946 Active 2021 [employer] [place] [facility] [place] [facility] [place] 2 11:16:18 Gastroesoph ageal reflux disease 426972844 Active 2021 [employer] [place] [facility] [place] [facility] [place] 2 11:16:24 Gastritis 9573123 Active 2021 [employer] [place] [facility] [place] 2 11:16:30 History of urinary stone 588344358 Active 2021 [employer] [place] [facility] [place] [facility] [place] 2 11:16:40 Essential tremor 806016423 Active 2021 [employer] [place] [facility] [place] [facility] [place] 2 11:16:56 Retinal detachment 58127258 Completed 202102/06/2022 [employer] [place] - [facility] [place] 2 11:17:16 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 384308650 Active 2021 [employer] [place] [facility] [place] 2 11:18:06 Coronary arterioscle rosis 22797534 Active 2021 [employer] [place] [facility] [place] 2 11:18:11 Diastolic heart failure 487453429 Active 2021 [employer] [place] [facility] & [place] 2 11:18:22 Neuropathy 432948148 Active 2021 [employer] [place] [facility] [place] 2 11:19:35 Allergic rhinitis 56031397 Active 2021 [employer] [place] - [facility] [place] & [place] 2 11:19:49 Problem Notes None recorded. Procedures Surgical History Date Name Laterality Status Provider Name and Address Organization Details Recorded Time 03/10/19 20 total knee replacement completed [facility] - [facility] [place] [facility] [place] 02/06/2022 11:23:24 08/09/19 19 total knee replacement completed [facility] - [facility] [place] [facility] [place] 02/06/2022 11:23:39 04/10/19 19 total knee replacement completed [facility] - [facility] [place] [facility] [place] 02/06/2022 11:23:32 12/09/19 17 arthroplasty of right shoulder completed [facility] - [facility] [place] & [place] 02/06/2022 11:22:50 12/09/19 15 exploratory lumbar laminectomy completed [facility] - [facility] [place] [facility] [place] 02/06/2022 11:21:57 06/18/19 13 Colonoscopy completed [facility] - [facility] [place] & [place] 02/06/2022 11:21:35 Cholecystectomy completed Libertysabrina [facility]ELAZQUEZ [facility] [place] 02/06/2022 11:21:02 LASIK completed [facility] [place] 02/06/2022 11:21:11 Colonoscopy completed [facility] [place] 02/06/2022 11:21:26 repair of shoulder completed Rod VELAZQUEZ [facility] [place] 02/06/2022 11:22:30 Cataract Surgery completed [facility] [place] 02/06/2022 11:23:01 Imaging Results Imaging Date Name Status LastModified by Organiz ation Details LastModified Time 05/17/2020 NM, bone scan, whole body completed [email or web address] Information not available 08/19/2022 16:50:01 06/17/2012 colonoscopy procedure (PROC) completed [email or web address] Information not available 08/19/2022 16:50:27 Procedure Notes None recorded. Medical Equipment None Reported. Allergies No known drug allergies Medications Name Sig Start Date Stop Date Status Note LastModified by Organization Details LastModified Time losartan 50 mg tablet TAKE 1 TABLET BY MOUTH EVERY DAY 2022 active Not Available Not Available Not Avai lable atorvastati n 80 mg tablet TAKE 1 TABLET BY MOUTH EVERY EVENING active Not Available Not Available No t Available prednisone 10 mg tablet 02/06 completed Not Available Not Available Not Available gabapentin 600 mg tablet active Not Available Not Available Not Available doxycycline hyclate 100 mg capsule TAKE 1 CAPSULE BY MOUTH TWICE DAILY FOR 10 DAYS 02/06 completed Not Available Not Available Not Available carvedilol 12.5 mg tablet TAKE 1 TABLET BY MOUTH TWICE DAILY active Not Available Not Available No t Available donepezil 5 mg tablet TAKE 1 TABLET BY MOUTH EVERY DAY AT BEDTIME active Not Available Not Available No t Available polyethylen e glycol 3350 17 gram oral powder packet TAKE 17 GR BY MOUTH DAILY active Not Available Not Available No t Available prednisone 20 mg tablet TAKE 2 TABLETS BY MOUTH EVERY DAY FOR 5 DAYS 02/06 completed Not Available Not Available Not Available isosorbide mononitrate ER 30 mg tablet,exte nded release 24 hr TAKE 1 TABLET BY MOUTH EVERY DAY IN THE MORNING 2021 active Not Available Not Available Not Avai lable fluorouraci l 5 % topical cream active Not Available Not Available Not Available promethazin e 6.25 mg-codeine 10 mg/5 mL syrup TAKE 5 ML BY MOUTH EVERY 6 HOURS FOR 10 DAYS NEEDED 02/06 completed Not Available Not Available Not Available clopidogrel 75 mg tablet TAKE 1 TABLET BY MOUTH DAILY active Not Available Not Available No t Available omeprazole 40 mg capsule,del ayed release TAKE 1 CAPSULE BY MOUTH EVERY DAY 02/06 completed Not Available Not Available Not Available aspirin 81 mg tablet,radha yed release TAKE 1 TABLET BY MOUTH 2 TIME A DAY active Not Available Not Available No t Available triamcinolo ne acetonide 0.1 % topical cream APPLY EXTERNALL Y TO THE AFFECTED AREA TWICE DAILY TO THREE TIMES DAILY 02/06 completed Not Available Not Available Not Available prednisone 10 mg tablets in a dose pack TAKE DIRECTED ON PACKAGE 02/06 completed Not Available Not Available Not Available benzonatate 100 mg capsule TAKE 1 CAPSULE BY MOUTH THREE TIMES DAILY FOR 6 DAYS NEEDED 02/06 completed Not Available Not Available Not Available hydrocodone 7.5 mg-acetamin ophen 325 mg tablet TAKE 1 TABLET BY MOUTH EVERY 4 HOURS NEEDED FOR MODERATE PAIN active Not Available Not Available No t Available pantoprazol e 40 mg tablet,radha yed release TAKE 1 TABLET BY MOUTH DAILY 2022 active Not Available Not Available Not Avai lable nitroglycer in 0.4 mg sublingual tablet ONE TABLET UNDER TONGUE NEEDED FOR CHEST PAIN EVERY 5 MINUTES NEEDED FOR 3 DOSES. CALL 911 IF NO RELIEF active Not Available Not Available No t Available hydroxyzine HCl 25 mg tablet TAKE 1 TO 2 TABLETS BY MOUTH AT BEDTIME NEEDED FOR ITCHING 02/06 completed Not Available Not Available Not Available codeine 10 mg-guaifene sin 100 mg/5 mL oral liquid TAKE 5 TO 10 MILLILITE RS BY MOUTH EVERY 6 HOURS NEEDED FOR COUGH 02/06 completed Not Available Not Available Not Available mupirocin 2 % topical ointment active Not Available Not Available Not Available furosemide 20 mg tablet TAKE 1 TABLET BY MOUTH DAILY active Not Available Not Available No t Available levofloxaci n 750 mg tablet TAKE 1 TABLET BY MOUTH DAILY FOR 10 DAYS 02/06 completed Not Available Not Available Not Available albuterol sulfate HFA 90 mcg/actuati on aerosol inhaler INHALE 2 PUFFS BY MOUTH EVERY 4 HOURS NEEDED FOR WHEEZING 02/06 completed Not Available Not Available Not Available lisinopril 40 mg tablet TAKE 1 TABLET BY MOUTH DAILY 02/06 completed Not Available Not Available Not Available fluticasone propionate 50 mcg/actuati on nasal spray,suspe nsion SHAKE LIQUID AND USE 1 SPRAY IN EACH NOSTRIL EVERY DAY 02/06 completed Not Available Not Available Not Available amoxicillin 875 mg-potassiu m clavulanate 125 mg tablet TAKE 1 TABLET BY MOUTH TWICE DAILY 02/06 completed Not Available Not Available Not Available Allergy Relief (fexofenadi ne) 180 mg tablet TAKE 1 TABLET BY MOUTH EVERY DAY WITH WATER 02/06 completed Not Available Not Available Not Available Breo Ellipta 200 mcg-25 mcg/dose powder for inhalation INHALE 1 PUFF BY MOUTH ONCE DAILY 02/06 completed Not Available Not Available Not Available Vitals Date Recorded Body height Body mass index (BMI) Body weight Body temperature Oxygen saturation Oxygen saturation in Arterial blood by Pulse oximetry Heart rate Systolic blood pressure Diastolic blood pressure Provider Name and Address Organization Details Last Updated DateTime 173.99 cm 35.1 kg/m2 680660. 61 g 98.4 [degF] 96 % 96 % 71 /min 119 mm[Hg] 63 mm[Hg] [facility] [place] 11:12:35 Social History Question Answer Notes LastModified by Organizat ion Details LastModified Time Tobacco Smoking Status Never Smoker [facility] woodard, [place] [facility] [place] 02/06/2022 11:20:49 What Is Your Level Of Alcohol Consumption? Occasional Information not available 02/06/2022 What Is Your Level Of Caffeine Consumption? Occasional Information not available 02/06/2022 What Was The Date Of Your Most Recent Tobacco Screening? 02/06/2022 Information not available 02/06/2022 Do You Use Any Illicit Or Recreational Drugs? No Information not available 02/06/2022 Do You Or Have You Ever Used Any Other Forms Of Tobacco Or Nicotine? No Information not available 02/06/2022 Sex: Unknown Functional Status None recorded. Mental Status None recorded. Family History Relationship Description Onset Age of this Age Resolved Age Notes LastModified by Organization Details LastModified Time Mother Alzheimer's disease deceas ed [email or web address] Not available 02/06/2022 11:20:06 Father Myocardial infarction dece ed [email or web address] Not available 02/06/2022 11:20:17 Daughter Essential hypertension [email or web address] Not available 11:20:28 Medical History Condition Response Allergies/Hayfever Y Heart Problems Y Arthritis Y Reflux/GERD Y High Cholesterol Y Heart Disease Y Hypertension Y Immunizations Vaccine Type Date Status Note Provider Nam e and Address Organization Details Recorded Time Pneumococcal conjugate PCV 13 1 completed Monica woodard, [place] - [facility] [place] [facility] [place] 08/19/2022 16:50:59 COVID-19, mRNA, LNP-S, bivalent, PF, 50 mcg/0.5 mL or 25mcg/0.25 mL dose 1 completed Monica Luke null, [place] - [facility] [place] [facility] [place] 08/19/2022 16:50:59 Tdap 9 completed [employer] [place] [facility] [place] [facility] [place] 02/06/2022 11:25:41 Tdap 7 completed [place] Luke [place] [facility] [place] [facility] [place] 08/19/2022 16:50:59 Hep A, adult 8 completed Monica [place] [facility] [place] [facility] [place] 08/19/2022 16:50:59 Influenza, adjuvanted, trivalent, PF 9 completed Monica Luke [place] [facility] [place] [facility] [place] 08/19/2022 16:50:59 Influenza, adjuvanted, trivalent, PF 9 completed Monica Luke [place] [facility] [place] [facility] [place] 08/19/2022 16:50:59 COVID-19, mRNA, LNP-S, PF, 100 mcg/0.5mL dose or 50 mcg/0.25mL dose 1 completed Monicaher Luke null[place] [facility] [place] [facility] [place] 08/19/2022 16:50:59 COVID-19, mRNA, LNP-S, PF, 100 mcg/0.5mL dose or 50 mcg/0.25mL dose 1 completed Monica Luke [place] [facility] [place] [facility] [place] 08/19/2022 16:50:59 COVID-19, mRNA, LNP-S, PF, 100 mcg/0.5mL dose or 50 mcg/0.25mL dose 1 completed Monica Luke [place] [facility] [place] [facility] [place] 08/19/2022 16:50:59 Tdap 9 completed Monica Ti [place] [facility] [place] [facility] [place] 08/19/2022 16:50:59 Tdap 4 completed Monica Ti [place] [facility] [place] [facility] [place] 08/19/2022 16:50:59 Influenza, high-dose, trivalent, PF 8 completed Monica Ti [place] [facility] [place] [facility] [place] 08/19/2022 16:50:59 Past Encounters Encounter ID Performer Location Encounter Start Date Encounter Closed Date Diagnosis/Indication Diagnosis SNOMED-CT Code Diagnosis ICD10 Code Diagnosis Note [id number] KOTA LAINEZ NP [id number] [address] [address] 02/06/2022 10:55:19 02/06/2022 11:58:09 Essential hypertension 82776361 I10 educated on goal of less than 130/90advi sed low sodium diet, healthy lifestyle including exercise as ablecontin ue current medication regimenER if any symptoms such as chest pain, shortness of breath Hyperlipidemia 98420033 E78.5 reinforced lifestyle, diet, exercise Family his tory of Alzheimer's disease 625562912 Z81.8 no concerns for safety at this time Neuropathy 847869111 G62 .9 verbalizes understand ing of daily feet checktake medication s as prescribed Gastroesop hageal reflux disease 431102351 K21.9 Avoid spicy foods, carbonated beverages, lying down 30 minutes to 1 hour after eatingEat smaller portion sizesTake medication s as prescribed Weight management Screening for malignant neoplasm of prostate 774789006 Z12.5 Health Concerns Section Related Observation LastModified by Organization Detai ls LastModified Time None Recorded Concern Status LastModified by Organization Details LastModified Time None Recorded Advance Directives Directive None Recorded Payers Encounter Date Sequence Insurance Name Policy Number Policy Tse Covered Member ID Tse Member ID Guarantor Name 02/06/2022 1 [employer] (MEDICARE) Mick Bronson [id number] 02/06/2022 2 [employer] [facility]MNITY Mick Bronson [id number] Notes Date Note Type Note Provider Name and Address Organization Details Recorded Time 022 text/ht ml DiabetesReported bypatient.Duration:chronic Control:treated with diet and oral medications; hemoglobin A1C goal is less than 7; BP usually runs less than 135/85, goal is less than 135/85 Compliance:compliant with medications; compliant with follow-up visits; no side effects from medications Self Care:seeing eye doctor regularly; checking feet regularly Associated Symptoms:no weight gain; no weight loss; no dizziness; no sweats; no headaches; no confusion; no increased thirst; no increased appetite; no increased urination; no blurred vision; no calluses on feet; no fatigue; no blurred vision; no paresthesias;numbness of feet; hx of neuropathy, better controlled with his gabapentinHyperlipidemiaReported bypatient.Duration:chronic Adherence to Treatment Plan:takes medications as prescribed Complications:coronary artery disease Risk Factors:diabetes;hypertensionHypert ensionReported bypatient.Severity:improving Duration:has noted for years Alleviating Factors:medication Self Care:not under emotional stress; blood pressure goal: <130/90; using an ARB; using a beta gumaro Associated Symptoms:no shortness of breath; no fatigue; no palpitations Concerns with severe family hx of dementia, denies any current memory issues but both sides of family started in 70s. KOTA LAINEZ NP [address] [place] [address], [phone], [facility] 02/15/2022 16:22:22
== END 2024-06-22 23:59 | disposition home or self-care (01) ==
LOC: LAB.DROPOF 06-23 10:11
PROVIDERS: PCP Family Medicine; Visit Provider Family Medicine
DX: Z12.5 Encounter for screening for malignant neoplasm of prostate (principal); Z11.4 Encounter for screening for human immunodeficiency virus [HIV]; Z11.59 Encounter for screening for other viral diseases; E53.8 Deficiency of other specified B group vitamins; I11.9 Hypertensive heart disease without heart failure
CPT/HCPCS: 80053; 80061; 82607; 85025; 86803; 87389; G0103

== ENCOUNTER 2024-09-06 11:51 | Day surgery (SDC) | payer MEDICARE, SELFPAY ==
[2024-09-06 13:32] VITALS: BP 134/60; PULSE 51; RESP 18; TEMP 36.6; O2SAT 98; BMI 36.1
[2024-09-06] MEDS: LACTATED RINGERS 1000ML 1,000 ML 999 ML IV (13:43)
--- NOTE | 2024-09-06 13:47 | EXP.ANES.CKL ---
[facility] Disclaimer: The information contained in this section may have been updated after the patient was seen, as this information can be updated by other users. Medical History Sensorimotor neuropathy B12 deficiency Hydronephrosis concurrent with and due to calculi of kidney and ureter Kidney stone on left side Left bundle branch hemiblock Surgical History Previous back surgery H/O hernia repair History of appendectomy History of cholecystectomy History of knee replacement H/O shoulder replacement Family History Father Coronary artery disease Heart attack Mother Coronary artery disease Social History Smoking Status: Never smoker alcohol intake: current alcohol intake frequency: holidays/special occasions only substance use type: denies use current occupational status: employed Travel in the last 8 weeks?: None household members: spouse housing: house caffeine: No Have you lived/traveled outside US in past 30 days?: No Contact w/someone who lives/traveled outside US past 30 days?: No Exposure to someone with infectious disease in past 14 days?: No Do you have a fever (greater than 100.4 F or 38 C)?: No Have you tested positive for COVID-19?: No Exposed to someone with COVID-19 in past 14 days?: No Do you have a sore throat?: No Do you have a cough?: No Do you have any weakness?: No Do you have any diarrhea?: No Are you experiencing any unusual bleeding?: No Do you have any muscle aches/pain?: No Do you have any abdominal pain?: No Are you experiencing loss of taste or smell?: No [facility] Anesthesia Checklist Patient Identification Patient Identification: Arm Band and Verbal (Name & ) Structural Data Admitted From: Home Planned Operative Procedure/s: colonscopy Consent for Planned Operative Procedure(s) Verified: Yes Verified Documents: Surgical Consent and History and Physical NPO Status Verified Time NPO: 00:00 Additional verifications Anesthesia Reactions: No Airway Assessment Mallampati Score:: Class II Dentition: Good Dentition Neurological Assessment Level of Consciousness: Awake, Alert and Appropriate Hx Seizures: No Anesthesia Plan Anesthesia Risk discussed: Yes Anesthesia Plan: Verified ASA Class: III Anesthesia Type: MAC
--- NOTE | 2024-09-06 13:50 | EXP.HP ---
History of Present Illness *Admission Date: 09/06/24 *Reason for visit:: Screening colonoscopy *History of present illness: Mr. Bronson is a 74-year-old gentleman who is here for screening colonoscopy/screening for colon cancer. The examination is deemed medically necessary for screening colonoscopy. The patient has been seen, interviewed and examined prior to the procedure by both myself and the anesthesia provider. [facility] Disclaimer: The information contained in this section may have been updated after the patient was seen, as this information can be updated by other users. Medical History Sensorimotor neuropathy B12 deficiency Hydronephrosis concurrent with and due to calculi of kidney and ureter Kidney stone on left side Left bundle branch hemiblock Surgical History Previous back surgery H/O hernia repair History of appendectomy History of cholecystectomy History of knee replacement H/O shoulder replacement Family History Father Coronary artery disease Heart attack Mother Coronary artery disease Social History Smoking Status: Never smoker alcohol intake: current alcohol intake frequency: holidays/special occasions only substance use type: denies use current occupational status: employed Travel in the last 8 weeks?: None household members: spouse housing: house caffeine: No Have you lived/traveled outside US in past 30 days?: No Contact w/someone who lives/traveled outside US past 30 days?: No Exposure to someone with infectious disease in past 14 days?: No Do you have a fever (greater than 100.4 F or 38 C)?: No Have you tested positive for COVID-19?: No Exposed to someone with COVID-19 in past 14 days?: No Do you have a sore throat?: No Do you have a cough?: No Do you have any weakness?: No Do you have any diarrhea?: No Are you experiencing any unusual bleeding?: No Do you have any muscle aches/pain?: No Do you have any abdominal pain?: No Are you experiencing loss of taste or smell?: No Other Medical History Have you received the Pneumonia Vaccine: Yes Review of Systems Review of Systems Review of systems (narrative): Negative *Cardiovascular Comments: Negative *Gastrointestinal Comments: Negative *Genitourinary Comments: Negative *Musculoskeletal Comments: Negative *Neurologic Comments: Negative Meds Home Medications and Allergies Home Medications ?Medication ?Instructions ?Recorded ?Confirmed ?Type nitroglycerin 0.4 mg sublingual 0.4 mg sublingual Q5-15M PRN chest 05/06/23 09/06/24 Rx tablet pain 30 days #10 tabs losartan 50 mg tablet 50 mg PO DAILY HTN 90 days #90 tabs 07/07/24 09/06/24 Rx pantoprazole 40 mg tablet,delayed 40 mg PO DAILY acid reflux #90 tabs 07/12/24 09/06/24 Rx release gabapentin 600 mg tablet 600 mg PO TID neuropathy #270 tabs 07/13/24 09/06/24 Rx sodium,potassium,mag sulfates 17.5 See Rx Instructions PO .COMPLEX 08/23/24 Rx gram-3.13 gram-1.6 gram oral soln #354 mL (Suprep Bowel Prep Kit) atorvastatin 80 mg tablet 80 mg PO DAILY HLD 90 days #90 tabs 08/26/24 09/06/24 Rx carvedilol 12.5 mg tablet (Coreg) 12.5 mg PO BID 90 days #180 tabs 09/06/24 09/06/24 Rx clopidogrel 75 mg tablet See Rx Instructions .Route 09/06/24 09/06/24 Rx .COMPLEX #90 tabs New Prescriptions to Start Prescriptions: Allergies Allergy/AdvReac Type Severity Reaction Status Date / Time No Known Allergies Allergy Verified 06/22/24 09:10 Exam Data for Last 24 hours Vital signs and Labs for Last 24 Hours: Temp Pulse Resp BP Pulse Ox O2 Del Method 97.9 F 51 L 18 134/60 98 Room Air 09/06/24 13:32 09/06/24 13:32 09/06/24 13:32 09/06/24 13:32 09/06/24 13:32 09/06/24 13:32 I & O for Last 24 hours: Intake & Output 09/03/24 09/04/24 09/05/24 09/06/24 23:59 23:59 23:59 23:59 Weight 245 lb *Routine HEENT Exam Head: Present normocephalic Eye: Present EOMI and PERRL ENT: Present mucous membranes moist *Routine Neck Exam Neck: Present supple *Routine Respiratory Exam Respiratory: Present CTA bilaterally *Routine Cardiovascular Exam Cardiovascular: Present RRR *Routine Abdominal Exam Abdominal: Present soft and normoactive bowel sounds; Absent tenderness *Routine Rectal Exam Rectal:: deferred *Routine Genitalia Exam Genitalia:: deferred *Routine Extremities Exam Extremities: Absent cyanosis, clubbing or edema *Routine Skin Exam Skin: Present warm; Absent rash *Routine Neurological Exam Neurological: Present alert and oriented X3 Assessment and Plan *Assessment and plan (1) Screening for colon cancer: Status: Acute Category: Medical Code(s): Z12.11 - Encounter for screening for malignant neoplasm of colon Plan A/P: 1. Screening for colon cancer is the preprocedural diagnosis. The patient will be anesthetized/sedated using MAC sedation. The patient has been seen and examined. Cardiac and lung assessment prior to the examination is stable. Proceed with planned screening colonoscopy.
--- NOTE | 2024-09-06 14:44 | P.PCN_ITS ---
[facility] Procedure Note Date: 09/06/24 Time: 14:44 Procedure Note:: Colonoscopy Procedure Report: Colonoscopy with cold snare polypectomy Endoscopist: Tree Pinon II, MD Referring physician: Travis Castellano MD Date of Procedure: September 06, 2024 Equipment: Olympus 190 variable stiffness pediatric colonoscope Sedation: MAC sedation Indication: Mr. Bronson is a 74-year-old gentleman who is here for screening colonoscopy. His last colonoscopy was 10 to 12 years ago and he has had 2-3 prior colonoscopies. He does state that he has had prior colon polyps removed. He reports no abdominal pain, weight loss, change in his bowel habits or rectal bleeding. He reports no family history of colon cancer. Procedure: Prior to the procedure, a history and physical exam was performed, and patient's medications and allergies were reviewed. The risks, benefits and alternatives of the sedation and procedure were discussed with the patient. All questions were answered and informed consent was obtained. The patient was brought to the procedure room. Patient identification and proposed procedure were verified by the physician and the nurse. The patient was placed in a left lateral decubitus position and the scope was passed under direct vision. Throughout the procedure, the patient's blood pressure, pulse, and oxygen saturations were monitored continuously. The colonoscopy was accomplished without difficulty. The patient tolerated the procedure well. Findings: On digital rectal examination there was normal rectal tone. There were no external hemorrhoids. The prostate was 2+, smooth, soft, symmetric without nodules. The colonoscope was introduced through the anal canal to the rectum and advanced to the cecum. The ileocecal valve and appendiceal orifice were identified. The scope was advanced a short distance into the ileum which appeared grossly normal. The scope was then withdrawn into the colon. There were 6 polyps (cecum x 2 (3 and 4 mm), ascending x 2 (4 and 6 mm), transverse x 1 (4 mm) and rectum x 1 (3 mm)). These were all removed via cold snare poly pectomy. The remaining cecum, ascending, transverse, descending, sigmoid and rectum were grossly normal. There were no other mucosal abnormalities identified. Upon retroflexion within the rectum there were grade 2 internal hemorrhoids. The preparation was excellent throughout with [place] Preparation Score of 9. The cecal time was 13 minutes. Impression: 1. Diminutive colonic polyps x 6 2. Grade 2 internal hemorrhoids Plan: I will follow-up the polyp histology and recommend repeat surveillance colonoscopy again in 3 to 5 years based upon the pathology. I would encourage psyllium bulking fiber supplementation on a maintenance basis.
[2024-09-06 14:49] VITALS: BP 85/56; PULSE 66; RESP 16; TEMP 36.4; O2SAT 94
[2024-09-06 14:59] VITALS: BP 92/54; PULSE 60; RESP 16; O2SAT 93
[2024-09-06 15:09] VITALS: BP 115/70; PULSE 60; RESP 16; O2SAT 94
[2024-09-06 15:19] VITALS: BP 126/70; PULSE 60; RESP 16; O2SAT 93
== END 2024-09-06 15:20 | disposition home or self-care (01) ==
PROVIDERS: PCP Family Medicine; Visit Provider Internal Medicine Gastroenterology
PROC: 0DJD8ZZ Inspection of Lower Intestinal Tract, Via Natural or Artificial Opening Endoscopic (ICD-10-PCS; CPT 45378; principal; 2024-09-06 14:00)
DX: Z12.11 Encounter for screening for malignant neoplasm of colon (principal); D12.6 Benign neoplasm of colon, unspecified; D12.0 Benign neoplasm of cecum; D12.8 Benign neoplasm of rectum; K64.1 Second degree hemorrhoids; Z86.0100 Personal history of colon polyps, unspecified; Z79.899 Other long term (current) drug therapy
CPT/HCPCS: 45385; 88305; J2003; J2704; J7120

== ENCOUNTER 2024-09-20 09:30 | Outpatient (CLI) | payer MEDICARE, SELFPAY ==
[2024-09-20 19:44] LABS: Vitamin B12 402 pg/mL (239-931)
--- OUTSIDE RECORDS SUMMARY | 2024-09-21 09:40 | XMS_ITS | Clinical Summary ---
Author Organization [facility] Address [address] [place] [address] Care Team Providers Care Pie Topper Name Role Phone Jose G Parker MD Primary Care Provider [phone] Allergies No known active allergies Medications atorvastatin (Lipitor) 40 MG tablet 1 (one) time each day. 8 Active carvedilol (Coreg) 12.5 MG tablet 2 (two) times a day. 8 Active gabapentin (Neurontin) 600 MG tablet every 8 (eight) hours. 8 Active lisinopril 20 MG tablet Take 20 mg by mouth twice a day. Active omeprazole (PriLOSEC) [address] capsule 1 capsule 1 (one) time each day. 8 Active cholecalciferol (Vitamin D-3) 25 MCG (1000 UT) tablet Take by mouth 1 (one) time each day. Active diclofenac (Voltaren) 1 % topical gelIndications: Acute pain of left knee Apply 2g topically to affected area 2-3x daily as needed for pain. 100 g 2 Active Active Problems Problem Noted Date Diagnosed Date Status post total knee replacement 10/07/2019 Acute blood loss anemia 08/19/2018 Acute postoperative pain 04/29/2018 Leukocytosis 04/29/2018 HLD (hyperlipidemia) 04/28/2018 HTN (hypertension) 04/28/2018 Prediabetes 04/28/2018 Meniscus, medial, derangement 11/24/2017 Primary osteoarthritis of right knee 11/24/2017 Overview (04/23/2021): Added automatically from request for surgery [id number] Added automatically from request for surgery [id number] Added automatically from request for surgery [id number] Added automatically from request for surgery [id number] Knee pain 06/23/2017 CHF (congestive heart failure) 12/29/2014 Lumbar stenosis 12/29/2014 Family History Medical History Relation Name Comments Cardiac disorder Father Conversions - Other Father Patient' s mother is Alzheimer's disease Mother Cardiac disorder Mother Conversions - Other Mother Patient' s mother is Relation Name Status Comments Father Mother Social History Tobacco Use Types Packs/Day Years Used Date Smoking Tobacco: Never Smokeless Tobacco: Never Sex and Gender Information Value Date Recorded Sex Assigned at Not on file Legal Sex Male 8:03 PM EDT Gender Identity Not on file Sexual Orientation Not on file Last Filed Vital Signs Vital Sign Reading Time Taken Comments Blood Pressure 122/72 04/23/2021 7:23 AM EST Pulse 68 04/23/2021 7:23 AM EST Temperature - - Respiratory Rate - - Oxygen Saturation 97% 04/23/2021 7:23 AM EST Inhaled Oxygen Concentration - - Weight 103 kg (227 lb 15.3 oz) 04/23/2021 7:23 A M EST Height 175.3 cm (5' 9 ) 04/23/2021 7:23 AM EST Body Mass Index 33.66 04/23/2021 7:23 AM EST Plan of Treatment Health Maintenance Due Date Last Done Comments [facility]-Depression Screening 1950 [facility]-/Child/Adol SDOH Screenings 1950 [facility]- SDOH Screenings 1968 [facility]-Adult SDOH Screenings 1968 CT Colonography 1995 Colonoscopy 1995 FIT-DNA 1995 FIT 1995 FOBT 1995 Sigmoidoscopy 1995 [facility]-Colorectal Cancer Screening 1995 [facility]-Pneumococcal Vaccine: 50 + Years (1 of 1 - PCV) 2000 [facility]-Zoster Vaccines (1 of 2) 2000 [id number] Vaccine ( season) 2023 11/30/2020, 05/04/2020, 04/06/2020 [facility]-Influenza Vaccine (#1) 11/08/202401/11, 10/28/2018 [facility]-RSV Vaccine: 60+ Years o r (1 - 1-dose 75+ series) 2025 [facility]-DTaP,Tdap,and Td Vaccine s (4 - Td or Tdap) 01/11/2029 01/11/2019, 10/28/2018, 02/05/2014 [facility]-Diabetes: Hemoglobin A1C Discontinued , 08/05/2018, 04/14/2018 HPV Vaccines Aged Out No longer eligi ble based on patient's age to complete this topic [facility]-HIB Vaccines Aged Out No longer e ligible based on patient's age to complete this topic [facility]-Hepatitis A Vaccines Aged Out No longer eligible based on patient's age to complete this topic [facility]-IPV Vaccines Aged Out No longer e ligible based on patient's age to complete this topic [facility]-Rotavirus Vaccines Aged Out No lo nger eligible based on patient's age to complete this topic Insurance MEDICARE [facility] Care Teams Pie Topper Relationship Specialty Start Date End Date Jose G Parker MD [address] [place], [place] [phone] PCP - General 07/21/20
== END 2024-09-20 23:59 | disposition home or self-care (01) ==
LOC: LAB.DROPOF 09-21 09:38
PROVIDERS: PCP Family Medicine; Visit Provider Family Medicine
DX: E53.8 Deficiency of other specified B group vitamins (principal)
CPT/HCPCS: 82607

== ENCOUNTER 2024-12-17 10:22 | Outpatient (CLI) | payer MEDICARE, SELFPAY ==
[2024-12-17 22:30] LABS: Vitamin B12 439 pg/mL (239-931)
--- OUTSIDE RECORDS SUMMARY | 2024-12-20 10:30 | XMS_ITS | Clinical Summary ---
[facility] Address [address] [place] [address] Care Team Providers Care Technical Sales Support Manager Name Role Phone Travis Castellano MD Primary Care Provider [phone] Allergies No known active allergies Medications carvedilol (COREG) 12.5 MG tablet Take 1 tablet by mouth 2 (Two) Times a Day. 10/22/2017 Active pantoprazole (PROTONIX) 40 MG EC tablet Take 1 tablet by mouth Daily. Active nitroglycerin (NITROSTAT) 0.[address] 1 tablet under the tongue Every 5 (Five) Minutes As Needed for Chest Pain. Take no more than 3 doses in 15 minutes. PT HAS NEVER USED Active atorvastatin (LIPITOR) 80 MG tablet Take 1 tablet by mouth every night at bedtime. 12/10/2021 Active losartan (COZAAR) 50 MG tablet Take 1 tablet by mouth Daily. 12/28/2021 Active clopidogrel (PLAVIX) 75 MG tablet Take 1 tablet by mouth Daily. PT TO STOP (7) DAYS PRIOR TO SURGERY 30 tablet 03/01/2022 Active gabapentin (Neurontin) 600 MG tablet Take 1 tablet by mouth 3 (Three) Times a Day. Active Active Problems Problem Noted Date Diagnosed Date Obesity (BMI 30-39.9) 02/28/2022 Full thickness tear of left subscapularis tendon, subsequent encounter 02/27/2022 S/P reverse total shoulder arthroplasty, left CAD (coronary artery disease) 02/27/2022 Full thickness tear of left subscapularis tendon 01/22/2022 Shoulder injury, left, sequela 01/22/2022 Overview (01/22/2022): Added automatically from request for surgery [id number] Acute pain of left shoulder 01/22/2022 Overview (01/22/2022): Added automatically from request for surgery [id number] Acute blood loss anemia, mild, asymptomatic 08/08 Pain due to total right knee replacement 019 Overview (07/21/2018): Added automatically from request for surgery [id number] Leukocytosis, likely reactive 04/29/2018 Acute postoperative pain 04/29/2018 Status post revision total right knee replacemen t 04/28/2018 HTN (hypertension) 04/28/2018 HLD (hyperlipidemia) 04/28/2018 CHF (congestive heart failure) 04/28/2018 Prediabetes 04/28/2018 Primary osteoarthritis of right knee 01/14/2018 Overview (01/14/2018): Added automatically from request for surgery [id number] Encounters Date Type Department Care Team Description 10/11/2024 Telephone [facility] MEDICINE [address] [place] [address] [facility] from Last 3 Months Family History Medical History Relation Name Comments Heart attack Father Heart attack Mother Relation Name Status Comments Father Mother Social History Tobacco Use Types Packs/Day Years Used Date Smoking Tobacco: Never Smokeless Tobacco: Never Tobacco Cessation:Counseling Given: Not Answered Alcohol Use Standard Drinks/Week Comments Yes 0 (1 standard drink = 0.6 oz pur e alcohol) Occassional AUDIT-C Answer Date Recorded Q1: How often do you have a drink containing alc ohol? Monthly or less 02/27/2022 Q2: How many drinks containi ng alcohol do you have on a typical day when you are drinking? 1 or 2 02/27/2022 Q3: How often do you have si x or more drinks on one occasion? Never 02/27/2022 Abuse Screen Answer Date Recorded Feels Unsafe at Home or Work/School no 02/27/2022 Feels Threatened by Someone no 02/08 Does Anyone Try to Keep You From Having Contact with Others or Doing Things Outside Your Home? no 02/27/2022 Physical Signs of Abuse Present no 02/27/2022 Housing Stability Answer Date Recorded Current Living Arrangements home 02/08 Potentially Unsafe Housing Conditions Not on ema e 02/27/2022 Disabilities Answer Date Recorded Difficulty Concentrating, Remembering or Making Decisions no 02/27/2022 Difficulty Managing Errands Independently no 02/27/2022 Education Answer Date Recorded Help with school or training? Not on file Preferred Language Georgian 02/15/2022 Sex and Gender Information Value Date Recorded Sex Assigned at Not on file Legal Sex Male 12:39 PM EDT Gender Identity Not on file Sexual Orientation Not on file Last Filed Vital Signs Vital Sign Reading Time Taken Comments Blood Pressure 170/90 06/10/2024 10:54 AM EDT Pulse 57 02/28/2022 7:00 AM EST Temperature 36.1 C (96.9 F) 03/14/2022 10:02 AM EST Respiratory Rate 18 02/28/2022 7:00 AM EST Oxygen Saturation 95% 02/28/2022 7:00 AM EST Inhaled Oxygen Concentration - - Weight 110 kg (242 lb) 06/10/2024 10:54 AM EDT Height 175.3 cm (5' 9.02 ) 06/10/2024 10:54 AM E DT Body Mass Index 35.72 06/10/2024 10:54 AM EDT Plan of Treatment Upcoming Encounters Date Type Department Care Team (Late st Contact Info) Description 06/14/2025 10:00 AM EDT Office Visit [facility]ICINE [address] [facility] [address] [place] [phone] Mirna Lancaster PA-C [address] [facility] [address] [place] [id number] Health Maintenance Due Date Last Done Comments LIPID PANEL 1950 COLOGUARD 1995 COLON CANCER SCREENING 5 YEA R SIGMOIDOSCOPY 1995 COLONOSCOPY 1995 COL[address]ECTAL CANCER SCREENING 1995 CT COLONOGRAPHY 1995 FECAL OCCULT BLOOD TEST 1995 FIT Testing (1 year) 1995 ZOSTER VACCINE (1 of 2) 2000 ANNUAL WELLNESS VISIT 01/14/2018 HEPATITIS C SCREENING 01/14/2018 Pneumococcal Vaccine 50+ (2 of 2 - PPSV23) 02/27/2021 01/02/2021 INFLUENZA VACCINE 10/08/2024 12/24/2022, , 10/28/2018, Additional history exists COVID-19 Vaccine (5 - 2024-2 6 season) 2024 03/26/2022, 11/30/2020, 05/04/2020, Additional history exists TDAP/TD VACCINES (5 - Td or Tdap) 01/11/2029 01/11/2019, 10/28/2018, 02/05/2014, Additional history exists Medical Devices Implanted Type Area Flux Plant Operator Device Identifier Shelf Expiration Date Model / Serial / Lot Cmt Bone Simplex/P Full Dose 10/Pk - [id number] Implanted:Qt y: 2 on 04/28/2018 by David Ventura MD at [facility] Implant Right: Knee NINO HADLEY 08/07/2020 [id number] / / [id number] Kn Comp Genes Ii Spc Oxinium - [id number] Implanted:Qt y: 1 on 04/28/2018 by David Ventura MD at [facility] Implant Right: Knee [employer] 01/16/2028 [id number] / / [id number] Base Tib/Kn Gen2 Nonpor Ti Sz6 Rt - [id number] Implanted:Qt y: 1 on 04/28/2018 by David Ventura MD at [facility] Implant Right: Knee [employer] 02/17/2028 [id number] / / [id number] Pat Gen2 Resrf 35mm - [id number] Implanted:Qt y: 1 on 04/28/2018 by David Ventura MD at [facility] Implant Right: Patella [employer] 03/10/2028 [id number] / / [id number] Insrt Art Legion Ps Hf Xlpe Sz5to6 9mm - [id number] Implanted:Qt y: 1 on 04/28/2018 by David Ventura MD at [facility] Implant Right: Knee [employer] 11/25/2027 [id number] / / [id number] Totl Kn Gilbert Jackson Nephew - [id number] Implanted:Qt y: 1 on 04/28/2018 by David Ventura MD at [facility] Implant Right: Knee [employer] [id number] / / Insrt Art Legion Ps Hf Xlpe Sz5to6 9mm - [id number] Implanted:Qt y: 1 on 08/18/2018 by David Ventura MD at [facility] Implant Right: Knee [employer] 05/18/2028 [id number] / / [id number] Couplr Kn Legion Offst Pls 2mm - [id number] Implanted:Qt y: 1 on 04/06/2019 by David Ventura MD at [facility] Implant Right: Knee [employer] 09/22/2028 [id number] / / [id number] Comp Fem Legion Oxinium Cnstr Sz7 Rt - [id number] Implanted:Qt y: 1 on 04/06/2019 by David Ventura MD at [facility] Implant Right: Knee [employer] 09/24/2028 [id number] / / [id number] Wedge Fem Legion Post Sz7/8 Lng 5mm - [id number] Implanted:Qt y: 1 on 04/06/2019 by David Ventura MD at [facility] Implant Right: Knee [employer] 08/31/2027 [id number] / / [id number] Baseplt Tib Rev Legion Ti Sz6 Rt - [id number] Implanted:Qt y: 1 on 04/06/2019 by David Ventura MD at [facility] Implant Right: Knee [employer] 10/07/2027 [id number] / / [id number] Couplr Kn Legion Offst Pls 4mm - [id number] Implanted:Qt y: 1 on 04/06/2019 by David Ventura MD at [facility] Implant Right: Knee [employer] 08/01/2028 [id number] / / [id number] Stem Fem/Tib Kn Legion/Hk Pf Str 85v629zu - [id number] Implanted:Qt y: 1 on 04/06/2019 by David Ventura MD at [facility] Implant Right: Knee [employer] 03/12/2025 [id number] / / [id number] Pat Gen2 Resrf 35mm - [id number] Implanted:Qt y: 1 on 04/06/2019 by David Ventura MD at [facility] Implant Right: Knee [employer] 02/14/2029 [id number] / / [id number] Insrt Tib Gen2 Cnstr Art Sz5to6 11mm - [id number] Implanted:Qt y: 1 on 04/06/2019 by David Ventura MD at [facility] Implant Right: Knee [employer] 08/06/2027 [id number] / / [id number] Cmt Bone Simplex/P Tmycin Fdos 10pk - [id number] Implanted:Qt y: 2 on 04/06/2019 by David Ventura MD at [facility] Implant Right: Knee NINO HADLEY 09/06/2020 [id number] / / [id number] Stem Fem/Tib Kn Legion/Hk Pf Str 14t016kl - [id number] Implanted:Qt y: 1 on 04/06/2019 by David Ventura MD at [facility] Implant Right: Knee [employer] 09/03/2027 [id number] / / [id number] Glenosphere Shldr Aequalis Perform Rev Lat Pls3mm 42mm - [id number] - [id number] Implanted:Qt y: 1 on 02/27/2022 by Adelso James MD at [facility] Implant Left: Shoulder TORNIER [id number] 09/18/2026 [id number] / [id number] / Baseplt Shldr Aequalis Perform Lat Aug Pls3 25mm - [id number] - [id number] Implanted:Qt y: 1 on 02/27/2022 by Adelso James MD at [facility] Implant Left: Shoulder TORNIER [id number] 12/25/2026 [id number] / [id number] / Stem Hum/Shldr Perform Std Shrt Sz3 29h77h6ny - [id number] - [id number] Implanted:Qt y: 1 on 02/27/2022 by Adelso James MD at [facility] Implant Left: Shoulder TORNIER [id number] 07/12/2026 DWX3SS / [id number] / Insrt Rev Shldr Perform Sz 3to4 42mm Pls0 - [id number] - [id number] Implanted:Qt y: 1 on 02/27/2022 by Adelso James MD at [facility] Implant Left: Shoulder TORNIER [id number] 05/10/2026 [id number] / [id number] / Scrw Aequalis Perform Centrl 6.5x35mm - [id number] Implanted:Qt y: 1 on 02/27/2022 by Adelso James MD at [facility] Implant Left: Shoulder TORNIER [id number] / / Scrw Aequalis Perform Periph 5x38mm - [id number] Implanted:Qt y: 1 on 02/27/2022 by Adelso James MD at [facility] Implant Left: Shoulder TORNIER [id number] / / Scrw Aequalis Perform Periph 5x30mm - [id number] Implanted:Qt y: 1 on 02/27/2022 by Adelso James MD at [facility] Implant Left: Shoulder TORNIER [id number] / / Scrw Aequalis Perform Periph 5x26mm - [id number] Implanted:Qt y: 1 on 02/27/2022 by Adelso James MD at [facility] Implant Left: Shoulder TORNIER [id number] / / Scrw Aequalis Perform Periph 5x22mm - [id number] Implanted:Qt y: 1 on 02/27/2022 by Adelso James MD at [facility] Implant Left: Shoulder TORNIER [id number] / / Shldr Rev Ascend Flex W/Perform Lat/Aug Baseplt - [id number] Implanted:Qt y: 1 on 02/27/2022 by Adelso James MD at 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 POWER OF PIECE MARKER SMALL ARMS - SCAN 04/28/2018 5:36 AM POWER OF PIECE MARKER SMALL ARMS & MEDICAL CONSENT 10/28/2013 LIVING WILL - SCAN 04/28/2018 5:36 AM JOLEEN NG WILL DIRECTIVE 10/28/2013 * CPR (Attempt to Resuscitate) (Latest Code Status on File) Date Activated Date Inactivated Comments 02/27/2022 2:29 PM 02/28/2022 2:41 PM Question Answer Comments Code Status (Patient has no pulse and is not breathing): CPR (Attempt to Resuscitate) Medical Interventions (Patie nt has pulse or is breathing): Full Level Of Support Discussed With: Patient * CPR (Attempt to Resuscitate) Date Activated Date Inactivated Comments 04/06/2019 6:03 PM 04/07/2019 3:16 PM Question Answer Comments Code Status (Patient has no pulse and is not breathing): CPR (Attempt to Resuscitate) Medical Interventions (Patie nt has pulse or is breathing): Full * CPR (Attempt to Resuscitate) Date Activated Date Inactivated Comments 08/18/2018 3:22 PM 08/19/2018 2:15 PM Question Answer Comments Code Status (Patient has no pulse and is not breathing): CPR (Attempt to Resuscitate) Medical Interventions (Patie nt has pulse or is breathing): Full Level Of Support Discussed With: Patient * CPR (Attempt to Resuscitate) Date Activated Date Inactivated Comments 04/28/2018 10:57 AM 04/29/2018 3:44 PM Question Answer Comments Code Status (Patient has no pulse and is not breathing): CPR (Attempt to Resuscitate) Medical Interventions (Patie nt has pulse or is breathing): Full Level Of Support Discussed With: Patient Care Teams Technical Sales Support Manager Relationship Specialty Start Date End Date Travis Castellano MD [address] [place] [address] [place] [address] PCP - General Family Medicine 04/30/23
--- OUTSIDE RECORDS SUMMARY | 2024-12-20 10:30 | XMS_ITS | Encounter Summary ---
[facility] Address [address] [place] [address] Care Team Providers Care Curtain Stretcher Assembler Name Role Phone Travis Castellano MD Primary Care Provider [phone]- [phone] Encounter Details Date Type Department Care Team (Late st Contact Info) Description 04/10/2022 Telephone [facility] [address] [place] [phone] Travis Pepper, PA-C [address] [address] Social History Tobacco Use Types Packs/Day Years Used Date Smoking Tobacco: Never Smokeless Tobacco: Never Alcohol Use Standard Drinks/Week Comments Yes 0 [...] or training? Not on file Preferred Language Portuguese 02/15/2022 Sex and Gender Information Value Date Recorded Sex Assigned at Not on file Legal Sex Male 12:39 PM EDT Gender Identity Not on file Sexual Orientation Not on file documented as of this encounter Plan of Treatment Upcoming Encounters Date Type Department Care Team (Late st Contact Info) Description 06/14/2025 10:00 AM EDT Office Visit [facility] MEDICINE [address] [facility] [address] [place] [address] Mirna Lancaster, PA-C [address]60 [facility] [address] [place], [place] [id number] documented as of this encounter Visit Diagnoses Not on filedocumented in this encounter Care Teams Curtain Stretcher Assembler Relationship Specialty Start Date End Date Travis Castellano MD [address] [place] [address] [facility] [place] [address] PCP - General Family Medicine 04/30/23 documented as of this encounter
--- OUTSIDE RECORDS SUMMARY | 2024-12-20 10:30 | XMS_ITS | Clinical Summary ---
Author Organization [facility] Address [address] [place] [address] Care Team Providers Care Lyft Driver Name Role Phone Jose G Parker MD Primary Care Provider [phone] Allergies No known active allergies Medications atorvastatin [...] replacement 10/07/2019 Acute blood loss anemia 08/19/2018 Leukocytosis 04/29/2018 HLD (hyperlipidemia) 04/28/2018 HTN (hypertension) 04/28/2018 Prediabetes 04/28/2018 Meniscus, medial, derangement 11/24/2017 Primary osteoarthritis of right knee 11/24/2017 Overview (04/23/2021): Added automatically from request for surgery [id number] Added automatically from request for surgery [id number] Added automatically from request for surgery [id number] Added automatically from request for surgery [id number] Knee pain 06/23/2017 CHF (congestive heart failure) 12/29/2014 Lumbar stenosis 12/29/2014 Resolved Problems Problem Noted Date Diagnosed Date Resolved Date Acute postoperative pain 04/29/2018 Family History Medical History Relation Name Comments [...] 2000 [facility]-Zoster Vaccines (1 of 2) 2000 KOT-[id number]-07 Vaccine (4 - 2024- season) 2024 11/30/2020, 05/04/2020, 04/06/2020 [facility]-Influenza Vaccine (#1) 11/08/202401/11, [...] age to complete this topic Insurance MEDICARE [facility] Care Teams Lyft Driver Relationship Specialty Start Date End Date Jose G Parker MD [address] [place] [address] PCP - General 07/21/20
== END 2024-12-17 23:59 ==
LOC: LAB.DROPOF 12-20 10:22
PROVIDERS: PCP Family Medicine; Visit Provider Family Medicine
DX: E53.8 Deficiency of other specified B group vitamins (principal)
CPT/HCPCS: 82607